=== PATIENT | female | born 1990 | race Caucasian/White ===

== ENCOUNTER 2017-01-17 11:19 | Emergency (ER) | payer OTHER ==
[~2017-01-17] VITALS: Ht 160 cm; Wt 52.7 kg
[~2017-01-17 11:19] MED LIST: ALPRAZOLAM0.25 MG; ANAPROX DS550 M1 PO; BENTYL10 MG PO; BIRTH CONTROL PILL PO; BIRTH CONTROL PILLS; GIANVI 3 MG-0.1 EACH PO; MIDOL1 TABLET PO; NAPROXEN500 MG PO; PERCOCET 5/31 TABLET PO; PROMETHAZINE HC25 M1 PO; TOPAMAX100 MG PO; TOPIRAMATE PO; XANAX0.25 MG PO
[2017-01-17 12:23] LABS: HEMATOCRIT 42.3 % (36.0-46.0); MCH 29.8 PG (29.0-34.0); MCHC 32.9 G/DL (30.0-36.0); MCV 90.8 FL (83-99); MEAN PLAT.VOLUME 8.8 uM^3 (9.5-12.4); PLATELET COUNT 273 K/uL (156-360); RBC DIS.WIDTH-CV 13.2 % (11.8-14.6); RBC DIS.WIDTH-SD 44.2 % (39-53); RED BLOOD COUNT 4.66 M/uL (3.80-5.20); WHITE BLOOD COUNT 5.3 K/uL (4.1-10.2)
[2017-01-17 12:33] LABS: CHLORIDE 112 mEq/L (99-109); POTASSIUM 3.8 mEq/L (3.7-5.4); SODIUM 139 mEq/L (136-147)
[2017-01-17 12:35] LABS: GLUCOSE 94 mg/dL (70-99)
[2017-01-17 12:36] LABS: ANION GAP 6 MEQ/L (2-14)
[2017-01-17 12:37] LABS: TOTAL BILIRUBIN 0.2 mg/dL (0.0-1.0)
[2017-01-17 12:39] LABS: ALKALINE PHOSPHATASE 53 IU/L (3-129); GFR ESTIMATE (CALCULATED) > 59 mL/min/
[2017-01-17 12:40] LABS: UREA NITROGEN (BUN) 8 mg/dL (9-23)
[2017-01-17 12:40] LABS: ADD MIUA? YES; BILIRUBIN NEGATIVE; BLOOD NEGATIVE; COLOR YELLOW ((YELLOW)); GLUCOSE (STRIP) NEGATIVE; KETONES NEGATIVE; LEUKOCYTES TRACE; NITRITE NEGATIVE; PROTEIN (STRIP) NEGATIVE; SPECIFIC GRAVITY 1.017 (1.000-1.030); UROBILINOGEN 0.2 MG/DL (0.2-1.0)
[2017-01-17 12:42] LABS: LIPASE 20 U/L (1.0-51.0)
[2017-01-17 12:45] LABS: BACTERIA RARE /HPF; EPITHELIAL CELLS RARE /HPF; MUCUS TRACE /LPF; RED BLOOD CELLS 0-5 /HPF (0-5); WHITE BLOOD CELLS 0-5 /HPF (0-5)
[2017-01-17 12:48] LABS: QUANTITATIVE HCG < 4.0 MIU/ML
[2017-01-17 13:34] LABS: TROP-I INTERPRETATION NEGATIVE; TROPONIN-I < 0.01 ng/mL (0.0-0.30)
[2017-01-17] MEDS ORDERED: ZOFRAN ODT4 MG PO (13:43)
[2017-01-17 14:34] VITALS: BP 117/76
== END 2017-01-17 14:35 | disposition home or self-care (01) ==
LOC: EME 11:19
PROVIDERS: Nurse Practitioner Family
DX: R07.89 Other chest pain (principal)
CPT/HCPCS: 80053; 81003; 83690; 84484; 84702; 85027; 93005; 99281; 99284; J7030

== ENCOUNTER 2017-09-14 01:49 | Emergency (ER) | payer OTHER ==
[~2017-09-14] VITALS: Ht 160 cm; Wt 54.7 kg
[~2017-09-14 01:49] MED LIST changes: +ZOFRAN ODT4 MG PO
[2017-09-14 03:14] LABS: HEMATOCRIT 41.7 % (36.0-46.0); HEMOGLOBIN 14.5 G/DL (11.9-15.5); MCH 31.3 PG (29.0-34.0); MCHC 34.8 G/DL (30.0-36.0); MCV 89.9 FL (83-99); PLATELET COUNT 228 K/uL (156-360); RBC DIS.WIDTH-CV 13.1 % (11.8-14.6); RBC DIS.WIDTH-SD 43.1 % (39-53); RED BLOOD COUNT 4.64 M/uL (3.80-5.20); WHITE BLOOD COUNT 5.6 K/uL (4.1-10.2)
[2017-09-14 03:30] LABS: CHLORIDE 105 mEq/L (99-109); POTASSIUM 3.9 mEq/L (3.7-5.4); SODIUM 138 mEq/L (136-147)
[2017-09-14 03:31] LABS: GLUCOSE 93 mg/dL (70-99)
[2017-09-14 03:35] LABS: CREATININE 0.6 mg/dL (0.6-1.3); GFR ESTIMATE (CALCULATED) > 59 mL/min/
[2017-09-14 03:36] LABS: UREA NITROGEN (BUN) 8 mg/dL (9-23)
[2017-09-14] MEDS ORDERED: PHENERGAN12.5 MG PR (04:14)
[2017-09-14 04:30] VITALS: BP 94/58
== END 2017-09-14 04:32 | disposition home or self-care (01) ==
LOC: EME 01:49
PROVIDERS: Emergency Medicine
DX: O21.9 Vomiting of pregnancy, unspecified (principal); O99.341 Other mental disorders complicating pregnancy, first trimester; F41.0 Panic disorder [episodic paroxysmal anxiety]; Z3A.10 10 weeks gestation of pregnancy; Z88.1 Allergy status to other antibiotic agents
CPT/HCPCS: 80048; 85027; 99281; 99285; J2405; J7030

== ENCOUNTER 2017-11-15 21:51 | Outpatient (CLI) | payer OTHER ==
[~2017-11-15] VITALS: Ht 160 cm; Wt 57.2 kg
[~2017-11-15 21:51] MED LIST changes: +PHENERGAN12.5 MG PR
[2017-11-15 22:19] VITALS: BP 100/65
[2017-11-15] MEDS ORDERED: FOLIC ACID1 MG PO (22:37)
== END 2017-11-15 22:54 | disposition home or self-care (01) ==
LOC: LDRP-OP 21:51 → 2WEST 21:53
DX: O26.892 Other specified pregnancy related conditions, second trimester (principal); Z3A.19 19 weeks gestation of pregnancy; R10.2 Pelvic and perineal pain
CPT/HCPCS: 59025; 87086; G0378